=== PATIENT | male | born 1950 | race Caucasian/White ===

== ENCOUNTER 2021-06-07 05:33 | Outpatient (RCR) | payer MEDICARE ==
[~2021-06-07] VITALS: Ht 177.8 cm; Wt 79.8 kg
[2021-06-08] MEDS ORDERED: FURO-124 PO (13:36)
[2021-06-08] MEDS ORDERED: METH2.5T PO (13:36)
[2021-06-08] MEDS ORDERED: AMIO200T50 PO (13:36)
[2021-06-08] MEDS ORDERED: ACHD5005 PO (13:36)
[2021-06-08] MEDS ORDERED: METO50TA7 PO (13:36)
[2021-06-08] MEDS ORDERED: CLOP75TA69 PO (13:36)
[2021-06-08] MEDS ORDERED: NITR0.4T39 SL (13:36)
[2021-06-08] MEDS ORDERED: LISI2.5T PO (13:36)
[2021-06-08] MEDS ORDERED: ATOR40TA70 PO (13:36)
== END 2021-06-08 14:14 | disposition home or self-care (01) ==
LOC: PREOP 05:33
PROVIDERS: ATTEND Surgery
DX: Z01.812 Encounter for preprocedural laboratory examination (principal); R13.10 Dysphagia, unspecified; Z20.822 Contact with and (suspected) exposure to COVID-19
CPT/HCPCS: 87635

== ENCOUNTER 2021-06-11 13:15 | Emergency (ER) | payer MEDICARE ==
[~2021-06-11] VITALS: Ht 180.3 cm; Wt 81.6 kg
[~2021-06-11 13:15] MED LIST changes: -HURRICAINE EXT TUBE (BENZOCAINE) XX PRN; -LACTATED RINGERS 1,000 ML IV ONE; -LACTATED RINGERS 1,000 ML IV STA; -LIDOCAINE JELLY 2% 6 ML SYRINGE MM PRN; -MIDAZOLAM 2 MG/2 ML (VERSED) VIAL ONE; -proPOfol 200 MG/20 ML (DIPRIVAN) VIAL IV ONE
[2021-06-11] MEDS ORDERED: AMIODARONE 200 MG (CORDARONE) TAB PO STA (13:29)
[2021-06-11] MEDS ORDERED: meTOproloL SUCCINATE 50 MG (TOPROL XL) TAB PO SCH (13:30)
--- NOTE | 2021-06-11 13:33 | ED Cardiac General ---
History of Present Illness General Stated Complaint: A-FIB RVR Source: patient Exam Limitations: no limitations History of Present Illness Date Seen by Provider: Jun 11, 2021 Time Seen by Provider: 13:15 Initial Comments Patient to the ER from endoscopy under care of Dr. Segura with chief complaint that he is in A. fib RVR 1 30-1 40. He has a history of paroxysmal atrial fibrillation. He stopped taking his amiodarone and metoprolol 50 mg XL for the past [address] Segura reached out to Dr. Garcia and she said just resume the medicines. Dr. Segura would like the patient to be examined and have medications resumed. Patient is not having any chest pain or shortness of air. No increased swelling in his hands or feet. He does have a history of heart failure. 6 weeks ago he had a heart attack, status post code and stents placed. He follows with cardiology and cardiothoracic at [place]. Allergies and Home Medications Allergies Coded Allergies: No Known Allergies (Unverified Allergy, Unknown, 06/11/21) Home Medications Amiodarone HCl 200 Mg Tablet, 200 MG PO DAILY, (Reported) Atorvastatin Calcium 40 Mg Tablet, 40 MG PO DAILY, (Reported) Clopidogrel Bisulfate 75 Mg Tablet, 75 MG PO DAILY, (Reported) Furosemide 40 Mg Tablet, 40 MG PO DAILY, (Reported) Hydrocodone/Acetaminophen 1 Each Tablet, 1 TAB PO Q6H PRN for PRN, (Reported) Lisinopril 2.5 Mg Tablet, 2.5 MG PO DAILY, (Reported) Methotrexate Sodium 2.5 Mg Tablet, 2.5 MG PO DAILY, (Reported) Metoprolol Succinate 50 Mg Tab.er.24h, 50 MG PO DAILY, (Reported) Nitroglycerin 0.4 Mg Tab.subl, 0.4 MG SL UD PRN for CHEST PAIN, (Reported) Patient Home Medication List Home Medication List Reviewed: Yes Review of Systems Review of Systems Constitutional: No chills, No diaphoresis EENTM: No Blurred Vision, No Double Vision Respiratory: Denies Cough, Denies Shortness of Air Cardiovascular: Denies Chest Pain, Denies Lightheadedness Gastrointestinal: Denies Abdominal Pain, Denies Constipated, Denies Diarrhea, Denies Nausea Genitourinary: Denies Burning, Denies Discharge Musculoskeletal: No back pain, No joint pain All Other Systems Reviewed Negative Unless Noted: Yes Past Mutflad-Qjetzs-Mjekjn Hx Patient Social History Tobacco Use?: No Use of E-Cig and/or Vaping dev: No Substance use?: No Physical Exam Vital Signs Vital Signs - First Documented 06/11/21 14:00 Temp 36.6 Pulse 101 Resp 18 B/P (MAP) 144/88 (106) Pulse Ox 97 O2 Delivery Room Air Capillary Refill : Height, Weight, BMI Height: 6'0.00" Weight: 205lbs. 0.0oz. [id number]; 25.24 BMI Method: General Appearance: No Apparent Distress, WD/WN HEENT: PERRL/EOMI, Pharynx Normal, Moist Mucous Membranes Neck: Full Range of Motion, Normal Inspection Respiratory: Lungs Clear, Normal Breath Sounds, No Accessory Muscle Use, No Respiratory Distress Cardiovascular: Regular Rate, Rhythm, No Edema, Normal Peripheral Pulses Gastrointestinal: Normal Bowel Sounds, Non Tender, Soft Extremity: Normal Capillary Refill, Normal Inspection, No Pedal Edema Neurologic/Psychiatric: Alert, Oriented x3, No Motor/Sensory Deficits Skin: Normal Color, Warm/Dry Progress/Results/Core Measures Results/Orders Lab Results Laboratory Tests Test 06/11/21 13:52 Range/Units White Blood Count 10.6 4.3-11.0 10^3/uL Red Blood Count 3.83 L 4.30-5.52 10^6/uL Hemoglobin 13.5 13.3-17.7 g/dL Hematocrit 39 L 40-54 % Mean Corpuscular Volume 103 H 80-99 fL Mean Corpuscular Hemoglobin 35 H 25-34 pg Mean Corpuscular Hemoglobin Concent 34 32-36 g/dL Red Cell Distribution Width 15.3 H 10.0-14.5 % Platelet Count 239 130-400 10^3/uL Mean Platelet Volume 9.1 9.0-12.2 fL Immature Granulocyte % (Auto) 1 % Neutrophils (%) (Auto) 82 H 42-75 % Lymphocytes (%) (Auto) 8 L 12-44 % Monocytes (%) (Auto) 7 0-12 % Eosinophils (%) (Auto) 1 0-10 % Basophils (%) (Auto) 1 0-10 % Neutrophils # (Auto) 8.7 H 1.8-7.8 10^3/uL Lymphocytes # (Auto) 0.9 L 1.0-4.0 10^3/uL Monocytes # (Auto) 0.8 0.0-1.0 10^3/uL Eosinophils # (Auto) 0.1 0.0-0.3 10^3/uL Basophils # (Auto) 0.1 0.0-0.1 10^3/uL Immature Granulocyte # (Auto) 0.1 0.0-0.1 10^3/uL Sodium Level 136 135-145 MMOL/L Potassium Level 3.9 3.6-5.0 MMOL/L Chloride Level 97 L 98-107 MMOL/L Carbon Dioxide Level 26 21-32 MMOL/L Anion Gap 13 5-14 MMOL/L Blood Urea Nitrogen 8 7-18 MG/DL Creatinine 0.78 0.60-1.30 MG/DL Estimat Glomerular Filtration Rate 98 BUN/Creatinine Ratio 10 Glucose Level 77 70-105 MG/DL Calcium Level 8.8 8.5-10.1 MG/DL Corrected Calcium 9.3 8.5-10.1 MG/DL Total Bilirubin 0.8 0.1-1.0 MG/DL Aspartate Amino Transf (AST/SGOT) 26 5-34 U/L Alanine Aminotransferase (ALT/SGPT) 13 0-55 U/L Alkaline Phosphatase 73 40-136 U/L B-Type Natriuretic Peptide 48.7 <100.0 PG/ML Total Protein 6.2 L 6.4-8.2 GM/DL Albumin 3.4 3.2-4.5 GM/DL My Orders Orders - DESTINY,MOOKIE J Chest 1 View, Ap/Pa Only (06/11/21 13:27) Cbc With Automated Diff (06/11/21 13:27) Comprehensive Metabolic Panel (06/11/21 13:27) BNP (06/11/21 13:27) Ekg Tracing (06/11/21 13:27) Continuous Ekg Monitoring (06/11/21 13:27) Metoprolol Succinate (Xl) Tab (Toprol Xl (06/11/21 13:30) Amiodarone Tablet (Cordarone Tablet) (06/11/21 13:29) Vital Signs/I&O 06/11/21 14:00 Temp 36.6 Pulse 101 Resp 18 B/P (MAP) 144/88 (106) Pulse Ox 97 O2 Delivery Room Air Progress Progress Note #1: Time: 13:33 Progress Note On the monitor the patient is in sinus rhythm 100. He did receive a liter of lactated Ringer's and postop. Going to get some labs and a chest x-ray and give him 50 mg Toprol-XL p.o. and 200 mg amiodarone p.o. x1 now. He is not in any acute distress. Progress Note #2: Time: 15:51 Progress Note After dose of his medications were given his heart rate is now in the 70s and in sinus rhythm. Plan to dismiss him home with appropriate follow-up outpatient. Initial ECG Impression Date: Jun 11, 2021 Initial ECG Impression Time: 13:55 Initial ECG Rate: 98 Initial ECG Rhythm: Normal Sinus Initial ECG Intervals: Normal Initial ECG Impression: Normal Comment Normal sinus rhythm without clinically relevant ST changes Diagnostic Imaging Diagonstic Imaging: Xray Plain Films/CT/US/NM/MRI: chest Comments [facility]. [place], [place] NAME: SAMSON LUNA [facility] REC#: [id number] PT STATUS: REG ER : 1950 PHYSICIAN: MOOKIE DIXON MD ADMIT DATE: 06/11/21/ER Signed Date of Exam:06/11/21 CHEST 1 VIEW, AP/PA ONLY HISTORY: Atrial fibrillation COMPARISON: Report from 04/30/2012. No images are available. TECHNIQUE: Frontal view chest FINDINGS: There are interstitial opacities in the lung bases, right greater than left, may be due to fibrotic change. This is reported in 2011, but comparison images are not available. No pleural effusion or pneumothorax is seen. The cardiac silhouette is normal in size. Lung volumes appear normal. IMPRESSION: 1. Bibasilar interstitial opacities, right greater than left, likely chronic fibrotic changes. Dictated by: Dictated on workstation # [id number] Dict: 06/11/21 1413 Trans: 06/11/21 1459 [facility] [id number] Interpreted by: CARMEN DUPREE MD Electronically signed by: CARMEN DUPREE MD 06/11/21 1459 Reviewed: Reviewed by Me Departure Impression Primary Impression: Paroxysmal atrial fibrillation with RVR Disposition: 01 HOME, SELF-CARE Condition: Improved Departure-Patient Inst. Decision time for Depature: 15:52 Referrals: NERI GARCIA MD (PCP/Family) Primary Care Physician Patient Instructions: Medicines for Atrial Fibrillation Add. Discharge Instructions: Drink plenty of fluids and resume your medications when you get home. MOOKIE DIXON Jun 11, 2021 13:33
[2021-06-11 13:58] LABS: BASOPHILS # (AUTO) 0.1 10^3/uL (0.0-0.1); BASOPHILS % (AUTO) 1 % (0-10); EOSINOPHILS # (AUTO) 0.1 10^3/uL (0.0-0.3); EOSINOPHILS % (AUTO) 1 % (0-10); HEMATOCRIT 39 % (40-54); HEMOGLOBIN 13.5 g/dL (13.3-17.7); LYMPHOCYTES # (AUTO) 0.9 10^3/uL (1.0-4.0); LYMPHOCYTES % (AUTO) 8 % (12-44); MEAN CORPUSCULAR HEMOGLOBIN 35 pg (25-34); MEAN CORPUSCULAR HGB CONC 34 g/dL (32-36); MEAN CORPUSCULAR VOLUME 103 fL (80-99); MEAN PLATELET VOLUME 9.1 fL (9.0-12.2); MONOCYTES # (AUTO) 0.8 10^3/uL (0.0-1.0); MONOCYTES % (AUTO) 7 % (0-12); NEUTROPHILS # (AUTO) 8.7 10^3/uL (1.8-7.8); NEUTROPHILS % (AUTO) 82 % (42-75); PLATELET COUNT 239 10^3/uL (130-400); WHITE BLOOD COUNT 10.6 10^3/uL (4.3-11.0)
[2021-06-11 14:07] LABS: ALBUMIN 3.4 GM/DL (3.2-4.5); POTASSIUM 3.9 MMOL/L (3.6-5.0)
[2021-06-11 14:09] LABS: CALCIUM 8.8 MG/DL (8.5-10.1)
[2021-06-11 14:10] LABS: TOTAL PROTEIN 6.2 GM/DL (6.4-8.2)
[2021-06-11 14:11] LABS: BILIRUBIN,TOTAL 0.8 MG/DL (0.1-1.0)
[2021-06-11 14:13] LABS: CREATININE SERUM 0.78 MG/DL (0.60-1.30)
--- NOTE | 2021-06-11 14:18 | Diagnostic Imaging Report ---
HISTORY: Atrial fibrillation COMPARISON: Report from 04/30/2012. No images are available. TECHNIQUE: Frontal view chest FINDINGS: There are interstitial opacities in the lung bases, right greater than left, may be due to fibrotic change. This is reported in 2012, but comparison images are not available. No pleural effusion or pneumothorax is seen. The cardiac silhouette is normal in size. Lung volumes appear normal. IMPRESSION: 1. Bibasilar interstitial opacities, right greater than left, likely chronic fibrotic changes. Dictated by: Dictated on workstation # [id number]
[2021-06-11 15:59] VITALS: BP 116/69
== END 2021-06-11 16:00 | disposition home or self-care (01) ==
LOC: EDUNIT# 13:23 → ER 13:28
DX: I48.20 Chronic atrial fibrillation, unspecified (principal); Z79.01 Long term (current) use of anticoagulants
CPT/HCPCS: 36415; 71045; 80053; 83880; 85025; 93005

== ENCOUNTER → 2021-06-11 | Day surgery (SDC) | payer MEDICARE ==
[~2021-06-11] VITALS: Ht 177.8 cm; Wt 79.8 kg
[~2021-06-11] MED LIST: ACHD5005 PO; AMIO200T50 PO; ATOR40TA70 PO; CLOP75TA69 PO; FURO-124 PO; HURRICAINE EXT TUBE (BENZOCAINE) XX PRN; LACTATED RINGERS 1,000 ML IV ONE; LACTATED RINGERS 1,000 ML IV STA; LIDOCAINE JELLY 2% 6 ML SYRINGE MM PRN; LISI2.5T PO; METH2.5T PO; METO50TA7 PO; MIDAZOLAM 2 MG/2 ML (VERSED) VIAL ONE; NITR0.4T39 SL; proPOfol 200 MG/20 ML (DIPRIVAN) VIAL IV ONE
[2021-06-11 11:50] VITALS: BP 119/81
== END ==
LOC: ENDO 11:33
PROVIDERS: ATTEND Surgery
DX: R13.14 Dysphagia, pharyngoesophageal phase (principal); I10 Essential (primary) hypertension; I25.10 Atherosclerotic heart disease of native coronary artery without angina pectoris; I25.2 Old myocardial infarction; F17.210 Nicotine dependence, cigarettes, uncomplicated; Z53.8 Procedure and treatment not carried out for other reasons; Z79.02 Long term (current) use of antithrombotics/antiplatelets; Z79.899 Other long term (current) drug therapy; Z98.890 Other specified postprocedural states; Z90.49 Acquired absence of other specified parts of digestive tract; Z79.891 Long term (current) use of opiate analgesic